=== PATIENT | female | born 1935 | race Hispanic/Latino ===

== ENCOUNTER 2017-02-22 14:05 | Outpatient (CLI) | payer MEDICARE ==
--- NOTE | 2017-02-22 15:38 | Mammography Report ---
BILATERAL DIGITAL SCREENING MAMMOGRAM with CAD: 02/22/17 14:05:00 CLINICAL: Routine screening. COMPARISON:02/01/16 and 01/29/15 FINDINGS: The breasts are heterogeneously dense, which may obscures small masses. Right upper asymmetries require additional workup.No architectural distortion or suspicious calcifications.The left breast is negative. IMPRESSION: Right asymmetries requiring further workup. BI-RADS CATEGORY: 0 -- Additional Imaging Evaluation Required RECOMMENDATION: Recall for right lateralmedial and spot magnification MLO and CC views and right breast ultrasound if needed. ACR BI-RADS MAMMOGRAPHIC CODES: 0 = Needs additional imaging evaluation; 1 = Negative; 2 = Benign; 3 = Probably benign; 4 = Suspicious; 5 = Malignant; 6 = Known biopsy-proven malignancy COMMENT: 1. Dense breast tissue, i.e., adenosis, fibrocystic changes, etc., may obscure an underlying neoplasm. 2. Approximately 10% of cancers are not detected with mammography. 3. A negative mammography report should not delay biopsy if a clinically suspicious mass is present. COMMENT: Patient follow-up letters are generated via our [employer] application.
== END 2017-02-22 14:06 | disposition home or self-care (01) ==
LOC: SPVWC 14:05
PROVIDERS: ATTEND Obstetrics & Gynecology
DX: Z12.31 Encounter for screening mammogram for malignant neoplasm of breast (principal)
CPT/HCPCS: 77067; G0202

== ENCOUNTER 2017-02-27 14:59 | Outpatient (CLI) | payer MEDICARE ==
--- NOTE | 2017-02-28 09:14 | Ultrasound Report ---
RIGHT DIGITAL DIAGNOSTIC MAMMOGRAM with CAD and RIGHT BREAST ULTRASOUND: 02/27/17 15:40:00 CLINICAL: Recall for asymmetries. COMPARISON:02/22/17screening FINDINGS: Lateralmedial, rolled CC and spot magnification MLOand CC views were performed. Satisfactory effacement on the MLO spot but persistent parenchymal asymmetries on the CC views. Ultrasound of the upper right breast was performed and demonstrated no mass, cyst or shadowing to correlate with the mammographic asymmetries on the CC views. An oval heterogeneous predominantly hyperechoic mass at 1 o'clock 4 cm from the nipple measures 9 x 7 x 3 mm. IMPRESSION: Probably benign mammographic asymmetries and a probably benign 9 mm predominantly hyperechoic mass at 1 o'clock 4 cm from the nipple. BI-RADS CATEGORY: 3 -- Probably Benign RECOMMENDATION: 6 month followup right mammogram and right breast ultrasound. The ultrasound followup is to reevaluate the mass at 1 o'clock 4 cm from the nipple. ACR BI-RADS MAMMOGRAPHIC CODES: 0 = Needs additional imaging evaluation; 1 = Negative; 2 = Benign; 3 = Probably benign; 4 = Suspicious; 5 = Malignant; 6 = Known biopsy-proven malignancy COMMENT: 1. Dense breast tissue, i.e., adenosis, fibrocystic changes, etc., may obscure an underlying neoplasm. 2. Approximately 10% of cancers are not detected with mammography. 3. A negative mammography report should not delay biopsy if a clinically suspicious mass is present. COMMENT: Patient follow-up letters are generated via our [employer] application.
== END 2017-02-27 15:00 | disposition home or self-care (01) ==
LOC: SPVWC 14:59
PROVIDERS: ATTEND Obstetrics & Gynecology
DX: R92.8 Other abnormal and inconclusive findings on diagnostic imaging of breast (principal)
CPT/HCPCS: G0206-RT

== ENCOUNTER 2017-09-13 14:01 | Outpatient (CLI) | payer MEDICARE ==
--- NOTE | 2017-09-14 11:21 | Ultrasound Report ---
RIGHT DIGITAL DIAGNOSTIC MAMMOGRAM with CAD and RIGHT BREAST ULTRASOUND: 09/13/17 14:01:00 CLINICAL: Follow-up mammographic asymmetries and a probably benign 9 mm predominantly hyperechoic mass at 1 o'clock 4 cm from the nipple by ultrasound. COMPARISON:02/27/17 FINDINGS: The previously described right upper parenchymal asymmetry is not significantly changed. It demonstrates satisfactory effacement with spot compression. Ultrasound of the right breast was performed and demonstrated no hyperechoic mass to correlate with the previous finding. IMPRESSION: Benign mammographic asymmetry and resolution of the previously identified mass by ultrasound. BI-RADS CATEGORY: 2 -- Benign RECOMMENDATION: Return to routine mammographic screening. ACR BI-RADS MAMMOGRAPHIC CODES: 0 = Needs additional imaging evaluation; 1 = Negative; 2 = Benign; 3 = Probably benign; 4 = Suspicious; 5 = Malignant; 6 = Known biopsy-proven malignancy COMMENT: 1. Dense breast tissue, i.e., adenosis, fibrocystic changes, etc., may obscure an underlying neoplasm. 2. Approximately 10% of cancers are not detected with mammography. 3. A negative mammography report should not delay biopsy if a clinically suspicious mass is present. COMMENT: Patient follow-up letters are generated by our [employer] application.
== END 2017-09-13 14:02 | disposition home or self-care (01) ==
LOC: SPVWC 14:01
PROVIDERS: ATTEND Obstetrics & Gynecology
DX: N64.89 Other specified disorders of breast (principal); R92.8 Other abnormal and inconclusive findings on diagnostic imaging of breast